=== PATIENT | female | born 1975 | race African-American/Black ===

== ENCOUNTER 2016-03-28 17:21 | Emergency (ER) | payer OTHER ==
[~2016-03-28] VITALS: Ht 157.5 cm; Wt 77.1 kg
[2016-03-28 17:38] VITALS: BP 126/79
--- NOTE | 2016-03-28 18:54 | ULTRASOUND REPORT ---
EXAMINATION: US TRANSVAGINAL CLINICAL INFORMATION: Vaginal bleeding COMPARISON: None. TECHNIQUE: Sonography of the pelvis is performed transabdominally and transvaginally FINDINGS: The uterus is anteverted There is a single intrauterine gestational sac measuring approximately 1.2 x 0.8 x 1.1 cm. It contains a yolk sac and pole. [place]-rump length of 0.2 cm corresponds to a menstrual age of 5 weeks 6 days, equal to dates. cardiac activity is identified. heart rate is 124 bpm. There is a small amount of extra chorionic fluid within the uterine cavity which could be related to implantation bleed. There is no large fluid collection identified. The cervix is closed. Cervical length is approximately 3 cm. There is a small nabothian cyst in the cervix. A small hypoechoic structure within the myometrium of the posterior lower uterine segment measures 1.2 x 1.2 x 10.9 cm and could represent a incidental small fibroid. No other masses delineated. Both ovaries are normal in size and appearance. Right ovary measures 2.7 x 1.7 x 1.8 cm. Volume 4.4 mL. Left ovary measures 2.0 x 1.2 x 1.2 cm, volume 1.6 mL. Arterial and venous flow seen within both ovaries. No significant ovarian or adnexal mass is defined. There is a small amount of free fluid in the cul-de-sac. No loculated collection IMPRESSION: Single live intrauterine gestation with a current estimated menstrual age of 5 weeks 6 days = dates. cardiac activity is identified. Estimated date of delivery is 11/22/2016. There is a small amount of extra chorionic fluid in the uterine cavity which could be related to implantation bleed. No ovarian or adnexal mass or torsion. Small amount of free fluid in the cul-de-sac is likely physiologic.
--- NOTE | 2016-03-28 19:58 | ED GENERAL ADULT ---
History of Present Illness General Chief Complaint: General Adult Stated Complaint: "IM HAVING A MISS CARRIAGE" 5WKS Source: patient Exam Limitations: no limitations Vital Signs & Intake/Output Vital Signs & Intake/Output Vital Signs Date Time Temp Pulse Resp B/P Pulse O2 O2 Flow FiO2 Ox Delivery Rate 03/28 1938 98 Room Air 03/28 1738 98.4 74 20 126/79 99 Room Air Room Air ED Intake and Output 03/29 0000 03/28 1200 Intake Total Output Total Balance Patient 170 lb Weight Allergies Coded Allergies: NO KNOWN ALLERGIES (10/07/10) Triage Note: PT TO ED WITH C/O VAGINAL BLEEDING SINCE 1500 TODAY, NO CLOTS NOTED. CALLED DR HARRINGTON TOLD TO COME IN FOR ULTRASOUND. Triage Nurses Notes Reviewed? yes Onset: Gradual Duration: better Timing: no prior history Injury Environment: home Severity: mild Severity Numbers: 4 No Modifying Factors: none : Yes Patient currently breastfeeds: No HPI: Patient is a 40-year-old female who is currently 5 weeks presenting to the emergency Department chief complaint of vaginal spotting that started this morning. She reports abdominal tenderness but no cramping or pain. Blood they came on this morning was bright red. It has since then stop. Denies any urinary frequency urgency or dysuria. No nausea or vomiting. No fevers or chills. No body aches. Otherwise feeling fine. She called her VEGETABLE PREPARER who told her to come in for evaluation. (KAYLA JACKSON) Past History Travel History Traveled to [place] past 21 day No Medical History Any Pertinent Medical History? see below for history Neurological: NONE EENT: NONE Cardiovascular: NONE Respiratory: NONE Gastrointestinal: NONE Hepatic: NONE Renal: NONE Musculoskeletal: NONE Psychiatric: NONE Endocrine: NONE Blood Disorders: NONE Cancer(s): NONE [employer] HOUSE SUPERVISOR/Reproductive: NONE Surgical History Surgical History: non-contributory Psychosocial History What is your primary language Portuguese Tobacco Use: Never used ETOH Use: denies use Illicit Drug Use: denies illicit drug use Family History Hx Contributory? No (KAYLA JACKSON) Review of Systems Review of Systems Constitutional: Reports: no symptoms. Comments Review of systems: See HPI, All other systems negative. Constitutional, no chills fever or weight loss HEENT: No visual changes no sore throat no congestion Cardiovascular: No chest pain ,palpitation , orthopnea or ankle swelling Skin, no jaundice no rashes Respiratory: No dyspnea cough sputum or hemoptysis GI: No nausea no vomiting : No dysuria No hematuria Muscle skeletal: no back pain, no neck pain, Neurologic: No numbness Immunology: No splenectomy or history of AIDS (KAYLA JACKSON) Physical Exam Physical Exam General Appearance: well developed/nourished, no apparent distress, alert, awake , comfortable Comments: Well-developed well-nourished person in no acute distress HEENT: . Pupils equally round and reactive to light and accommodation. Nose is atraumatic. Neck: Normal inspection Back: Nontender, no CVA tenderness. Full range of motion Cardiovascular: Regular rate and rhythms no murmurs rubs or gallops, normal JVP Respiratory: No respiratory distress.breath sounds clear to auscultation bilaterally Abdomen: Soft, nontender nondistended, no appreciable organomegaly. Normal bowel sounds. No ascites, no rebound or guarding. Extremity: No edema, no calf tenderness to palpation, normal and equal pulses. Neuro: Alert oriented x3 Skin: No appreciable rash on exposed skin, skin is warm and dry. Psych: Mood and affect is normal, memory and judgment is normal. Core Measures ACS in differential dx? No CVA/TIA Diagnosis: No Severe Sepsis Present: No Septic Shock Present: No (KAYLA JACKSON) Progress Differential Diagnoses I considered the following diagnoses in my evaluation of the patient: Threatened , intrauterine , normal vaginal bleeding during Plan of Care: Orders Procedure Date/time Status Regular Diet 03/28 D Active URINALYSIS 03/28 1955 Complete PARTIAL THROMBOPLASTIN TIME 03/28 1955 Complete PROTHROMBIN TIME 03/28 1955 Complete HUMAN BETA HCG TITRE 03/28 1955 Complete COMPREHENSIVE METABOLIC PANEL 03/28 1955 Complete CBC WITHOUT DIFFERENTIAL 03/28 1955 Complete RHOGAM WORK-UP 03/28 1955 Complete Laboratory Tests 03/28/16 2100: Urine Color YEL, Urine Clarity CLEAR, Urine pH 6.0, Ur Specific [place] >= 1.030 , Urine Protein NEG, Urine Ketones >=80, Urine Nitrite NEG, Urine Bilirubin NEG, Urine Urobilinogen 0.2, Ur Leukocyte Esterase NEG, Ur Microscopic EXAM NOT REQUIRED, Urine Hemoglobin NEG, Urine Glucose NEG 03/28/16 2011: Anion Gap 8, Estimated GFR > 60, BUN/Creatinine Ratio 20.0, Glucose 88, Calcium 9.0, Total Bilirubin 0.7, AST 34, ALT 37, Alkaline Phosphatase 52, Total Protein 7.2, Albumin 4.1, Globulin 3.1, Albumin/Globulin Ratio 1.3, Beta HCG, Quant 14602.0, PT 12.0, INR 1.14, APTT 33, CBC w Diff NO MAN DIFF REQ, RBC 4.23, MCV 90.1, MCH 30.3, RDW 12.9, MPV 7.1 L, Gran % 55.4, Lymphocytes % 35.8, Monocytes % 4.7, Eosinophils % 1.2, Basophils % 2.9 H, Absolute Granulocytes 3.5, Absolute Lymphocytes 2.2, Absolute Monocytes 0.3, Absolute Eosinophils 0.1, Absolute Basophils 0.2, PUBS MCHC 33.6 Diagnostic Imaging: Viewed by Me: Ultrasound. Discussed w/RAD: Ultrasound. Radiology Impression: PATIENT: TATO DOWNS PRESENT AGE: 40 PATIENT ACCOUNT NO: [id number] : 74 LOCATION: [facility] ORDERING PHYSICIAN: LILLIANA HERNANDEZ DO (TBS) SERVICE DATE: 03/28/16 EXAM TYPE: US - US-TRANSVAGINAL EXAMINATION: US TRANSVAGINAL CLINICAL INFORMATION: Vaginal bleeding COMPARISON: None. TECHNIQUE: Sonography of the pelvis is performed transabdominally and transvaginally FINDINGS: The uterus is anteverted There is a single intrauterine gestational sac measuring approximately 1.2 x 0.8 x 1.1 cm. It contains a yolk sac and pole. [place]-rump length of 0.2 cm corresponds to a menstrual age of 5 weeks 6 days, equal to dates. cardiac activity is identified. heart rate is 124 bpm. There is a small amount of extra chorionic fluid within the uterine cavity which could be related to implantation bleed. There is no large fluid collection identified. The cervix is closed. Cervical length is approximately 3 cm. There is a small nabothian cyst in the cervix. A small hypoechoic structure within the myometrium of the posterior lower uterine segment measures 1.2 x 1.2 x 10.9 cm and could represent a incidental small fibroid. No other masses delineated. Both ovaries are normal in size and appearance. Right ovary measures 2.7 x 1.7 x 1.8 cm. Volume 4.4 mL. Left ovary measures 2.0 x 1.2 x 1.2 cm, volume 1.6 mL. Arterial and venous flow seen within both ovaries. No significant ovarian or adnexal mass is defined. There is a small amount of free fluid in the cul-de-sac. No loculated collection IMPRESSION: Single live intrauterine gestation with a current estimated menstrual age of 5 weeks 6 days = dates. cardiac activity is identified. Estimated date of delivery is 11/22/2016. There is a small amount of extra chorionic fluid in the uterine cavity which could be related to implantation bleed. No ovarian or adnexal mass or torsion. Small amount of free fluid in the cul-de-sac is likely physiologic. DICTATED BY: GARETH MA MD DATE/TIME DICTATED:03/28/161838 JAI ALAI PLAYER:AISHA DATE/TIME TRANSCRIBED:1838 CONFIDENTIAL, DO NOT COPY WITHOUT APPROPRIATE AUTHORIZATION. < Electronically signed in Other Vendor System> SIGNED BY: GARETH MA MD 03/28/16 8203 Initial ED EKG: none Comments: Spoke with Dr. Harrington, pts VEGETABLE PREPARER. She reports that blood work looks okay and patient does not need rhogam she can be discharged home safely. She'll follow- up with her next week. Patient was educated on signs and symptoms to return. Spoke with Dr. Hernandez and he is in agreeMENT with plan. (KAYLA JACKSON) Departure Departure Time of Disposition: 2100 Disposition: HOME OR SELF CARE Condition: Stable Clinical Impression Primary Impression: Threatened miscarriage Secondary Impressions: Qualifiers: Weeks of gestation: less than 8 weeks Qualified Code: Z3A.01 - Less than 8 weeks gestation of Referrals: VICKY WEI,DILEEP Vargas (PCP/Family) Additional Instructions: FOLLOW UP WITH DR. HARRINGTON CALL TO MAKE APPT. INCREASE FLUIDS. RETURN FOR WORSEING SYMPTOMS OR CONCERNS. Departure Forms: Customer Survey General Discharge Information (KAYLA JACKSON) PA/WASHER ENGINEER Co-Sign Statement Statement: ED Attending supervision documentation- [x] I saw and evaluated the patient. I have also reviewed all the pertinent lab results and diagnostic results. I agree with the findings and the plan of care as documented in the PA's/WASHER ENGINEER's documentation. [] I have reviewed the ED Record and agree with the PA's/WASHER ENGINEER's documentation. [] Additions or exceptions (if any) to the PAs/WASHER ENGINEER's note and plan are summarized below: [] (LILLIANA HERNANDEZ DO) Critical Care Note Critical Care Note Critical Care Time: non-applicable (FATOU IRVERA,KAYLA)
[2016-03-28 20:21] LABS: ABSOLUTE BASOPHIL COUNT 0.2 /CUMM (0.0-0.2); ABSOLUTE EOSINOPHIL COUNT 0.1 /CUMM (0.0-0.7); ABSOLUTE GRANULOCYTE CT 3.5 /CUMM (1.4-6.5); ABSOLUTE LYMPH COUNT 2.2 /CUMM (1.2-3.4); ABSOLUTE MONOCYTE COUNT 0.3 /CUMM (0.10-0.60); BASOPHIL % 2.9 % (0.0-2.0); EOSINOPHIL % 1.2 % (0-5); GRANULOCYTE % 55.4 % (42.2-75.2); HEMATOCRIT 38.1 % (37-47); MEAN CORPUSCULAR HGB 30.3 PG (27.0-31.0); MEAN CORPUSCULAR HGB CONC 33.6 G/DL (33.0-37.0); MEAN CORPUSCULAR VOLUME 90.1 FL (81.0-99.0); MEAN PLATELET VOLUME 7.1 FL (7.4-10.4); PLATELET COUNT 308 /CUMM (130-400); RBC DISTRIBUTION WIDTH 12.9 % (11.5-14.5); RED BLOOD CELL CT 4.23 /CUMM (4.20-5.40); WHITE BLOOD CELL COUNT 6.3 /CUMM (4.8-10.8)
[2016-03-28 20:34] LABS: PTT 33 SEC (25-37)
== END 2016-03-28 21:44 ==
LOC: ERH 17:21
PROVIDERS: Physician Assistant
DX: O20.0 Threatened abortion (principal)
CPT/HCPCS: 36415; 81003; 96360